=== PATIENT | male | born 1980 | race Caucasian/White ===

== ENCOUNTER 2017-07-09 12:20 | Emergency (ER) | payer MEDICAID, OTHER ==
[2017-07-09 12:20] VITALS: BMI 39.5
[2017-07-09 12:31] VITALS: O2SAT 98
[2017-07-09] MEDS ORDERED: Albuterol 0.083% Inhal Sol (2.5 mg/3 mL) UD INH STA (12:43)
[2017-07-09] MEDS ORDERED: Albuterol-Ipratrop 3 mg / 0.5 (3 ml) UD IH STA (12:43)
--- NOTE | 2017-07-09 12:58 | C.PDOC ---
History Of Present Illness 37 year old male presents to the emergency department with a complaint of wheezing that started this morning, 07/09/2017. Associated with congestion and cough for 3 days. Denies fever. Chief Complaint (Nursing): Shortness Of Breath History Per: Patient History/Exam Limitations: no limitations Onset/Duration Of Symptoms: Days (x3 days) Past Medical History Reviewed: Historical Data, Nursing Documentation, Vital Signs Vital Signs: Last Vital Signs Temp 98.3 F 07/09/17 14:00 Pulse 82 07/09/17 14:00 Resp 18 07/09/17 14:00 BP 132/84 07/09/17 14:00 Pulse Ox 98 07/09/17 14:09 - Medical History PMH: Asthma Family History: States: Unknown Family Hx - Social History Hx Tobacco Use: Yes Hx Alcohol Use: No Hx Substance Use: No - Immunization History Hx Tetanus Toxoid Vaccination: No Hx Influenza Vaccination: No Hx Pneumococcal Vaccination: No Review Of Systems Except As Marked, All Systems Reviewed And Found Negative. (As per HPI, otherwise negative) Constitutional: Negative for: Fever ENT: Positive for: Nose Congestion Respiratory: Positive for: Cough, Wheezing Physical Exam - Physical Exam Appears: Well, Non-toxic, Toxic Skin: Normal Color, Warm, Dry Head: Atraumatic, Normacephalic Cardiovascular: Rhythm Regular, No Murmur Respiratory: No Normal Breath Sounds, No Decreased Breath Sounds, No Accessory Muscle Use, Wheezing (Expiratory wheezing b/l) Neurological/Psych: Oriented x3 (Alert) ED Course And Treatment O2 Sat by Pulse Oximetry: 98 (RA) Pulse Ox Interpretation: Normal - Radiology CXR: Interpreted by Me CXR Interpretation: Yes: No Acute Disease Progress Note: On re-evaluation patient feels better, O2 98 %RA. Lungs are clear to auscultation. Patient is stable to be d/c home with PMD follow up. Medical Decision Making Medical Decision Making: Time: 1243 --Chest x-ray --Albuterol 2.5 INH --Duoneb 1 ml IH --Predisone 60 mg PO Time: 1332 --Chest x-ray: read by me as normal. No acute infection noted. Time: 1405 --Patient is feeling better upon reevaluation and stable for discharge. Will discharge home with Rx of Flonase and Prednisone. Follow up primary care doctor. Clinical impression: asthma and URI Disposition - Disposition Disposition: HOME/ ROUTINE Disposition Time: 14:05 Condition: IMPROVED Additional Instructions: Follow up with your PMD/Clinic within 1-2 days. Return to ED if feel worse. Prescriptions: Fluticasone Propionate [Flonase] 1 spr NS BID #1 spr predniSONE [predniSONE Tab] 2 tab PO DAILY #8 tab Instructions: Asthma (ED), Upper Respiratory Infection (ED) Forms: [employer] ([place]) - Clinical Impression Clinical Impression: Exacerbation of asthma, Respiratory tract infection
[2017-07-09] MEDS ORDERED: Albuterol 0.083% Inhal Sol (2.5 mg/3 mL) UD ONE (12:59)
[2017-07-09] MEDS ORDERED: Albuterol-Ipratrop 3 mg / 0.5 (3 ml) UD ONE (12:59)
[2017-07-09 14:08] VITALS: BP 132/84; PULSE 82; RESP 18; TEMP 98.3
--- NOTE | 2017-07-09 16:05 | RAD ---
HISTORY: cough/wheezing COMPARISON: Comparison is made with 04/13/2016 TECHNIQUE: Chest PA and lateral FINDINGS: LUNGS: No active pulmonary disease. PLEURA: No significant pleural effusion identified. No pneumothorax apparent. CARDIOVASCULAR: Normal. OSSEOUS STRUCTURES: No significant abnormalities. VISUALIZED UPPER ABDOMEN: Normal. OTHER FINDINGS: None. IMPRESSION: No active disease.
== END 2017-07-09 14:14 | disposition home or self-care (01) ==
LOC: C.ER 12:20
DX: J45.901 Unspecified asthma with (acute) exacerbation (principal); J98.8 Other specified respiratory disorders